=== PATIENT | male | born 1965 | race Two or more races ===

== ENCOUNTER 2023-08-24 13:24 | Emergency (ER) | payer OTHER ==
[~2023-08-24] VITALS: Ht 157.5 cm; Wt 68.3 kg
[2023-08-24 13:29] VITALS: TEMP 97.4
[2023-08-24 13:32] VITALS: BP 120/87; PULSE 62; RESP 15; O2SAT 97
[2023-08-24] MEDS: methylPREDNISolone SOD SUCC 125 MG/2 ML VL IM ONE (15:56)
[2023-08-24] MEDS: KETOROLAC TROMETH 30 MG/ML 1ML VIAL IM ONE (15:56)
[2023-08-24] MEDS ORDERED: NAP500T PO (16:07)
== END 2023-08-24 16:18 | disposition home or self-care (01) ==
LOC: ER 13:24
DX: M10.9 Gout, unspecified (principal)
CPT/HCPCS: 73630; 96372; 99284; J1885; J2930